=== PATIENT | female | born 1980 | race African-American/Black ===

== ENCOUNTER 2016-12-31 16:24 | Emergency (ER) | payer OTHER ==
[~2016-12-31] VITALS: Ht 162.6 cm; Wt 70.8 kg
[2016-12-31 16:24] VITALS: BP 126/99
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
== END 2016-12-31 16:53 | disposition home or self-care (01) ==
LOC: ER 16:26
DX: S16.1XXA Strain of muscle, fascia and tendon at neck level, initial encounter (principal); V89.2XXA Person injured in unspecified motor-vehicle accident, traffic, initial encounter; Y93.89 Activity, other specified; Y92.410 Unspecified street and highway as the place of occurrence of the external cause; Y99.8 Other external cause status
CPT/HCPCS: 99281; A4606; Z7610; Z7502